=== PATIENT | female | born 1980 | race Caucasian/White ===

== ENCOUNTER 2016-06-02 16:38 | Emergency (ER) | payer MEDICAID ==
[~2016-06-02] VITALS: Ht 162.6 cm; Wt 59.0 kg
[~2016-06-02 16:38] MED LIST: ALPR.25 PO
[2016-06-02 16:46] VITALS: BP 118/79; PULSE 94; RESP 16; TEMP 98.8; O2SAT 99
[2016-06-02] MEDS ORDERED: LORA-373 PO (16:54)
--- NOTE | 2016-06-02 17:03 | PD ---
HPI Chief Complaint: Back/ Neck Pain or Injury Time Seen by Provider: 17:03 Travel History International Travel<30 days: No Contact w/Intl Traveler<30days: No Traveled to known affect area: No History of Present Illness HPI 35-year-old female presents to the ED for evaluation of 2 week history of low back pain. Described as constant, worsened by sitting or certain motions. Patient can identify no acute trauma or overuse. She does state that she is very active. She denies numbness, tingling, weakness, limitations to range of motion or loss of strength of the lower extremities. She denies saddle anesthesia or incontinence. She's been treating with ibuprofen and bed rest with no improvement of symptoms. She states that she has a history of similar back problems. She states that she fell onto her bottom from a sitting position approximately 6 weeks ago. But she states that her presenting symptoms did not occur until 2 weeks ago. PFSH Past Medical History Blood Disorders: No Anxiety: Yes Depression: Yes Heart Rhythm Problems: No Cancer: Yes (CERVICAL; LEEP PROCEDURE DONE) Cardiac Catheterization: No Cardiovascular Problems: No High Cholesterol: No Chest Pain: Yes Congestive Heart Failure: No Diabetes: No Endocrine: No Genitourinary: No Headaches: Yes Hypertension: No Immune Disorder: No Implanted Vascular Access Dvce: Yes Musculoskeletal: No Neurologic: Yes Psychiatric: Yes Reproductive: No Respiratory: No Myocardial Infarction: No PNEUMOCCOCAL Vaccine (Year): 2 ?: Not LMP: 05/09/16 : 3 Para: 2 Past Surgical History Body Medical Devices: BILAT BREAST IMPLANTS Coronary Artery Bypass Graft: No Gynecologic Surgery: Yes (CRYOSURGERY) Other Surgery: Yes (BREAST IMPLANTS) Family History Family Myocardial Infarction: Yes (FATHER) Social History Alcohol Use: Yes (OCC) Tobacco Use: Yes (5-6 CIGS PER DAY) Substance Use: No Allergies-Medications (Allergen,Severity, Reaction): Coded Allergies: No Known Allergies (Verified , 06/02/16) Reported Meds & Prescriptions Reported Meds & Active Scripts Active Ibuprofen 800 Mg Tab 800 Mg PO Q8H Flexeril (Cyclobenzaprine HCl) 10 Mg Tab 10 Mg PO TID Reported Lorazepam 0.5 Mg Tab Unknown Dose PO DAILY PRN Review of Systems Except as stated in HPI: all other systems reviewed are Neg Physical Exam Narrative GENERAL: Well-nourished, well-developed female in no acute distress. SKIN: Focused skin assessment warm/dry. HEAD: Normocephalic. EYES: No scleral icterus. No injection or drainage. NECK: Supple, trachea midline. No JVD or lymphadenopathy. CARDIOVASCULAR: Regular rate and rhythm without murmurs, gallops, or rubs. RESPIRATORY: Breath sounds equal bilaterally. No accessory muscle use. GASTROINTESTINAL: Abdomen soft, non-tender, nondistended. MUSCULOSKELETAL: No cyanosis, or edema. 5/5 strength of dorsiflexion, plantar flexion, hip and knee flexion bilaterally. Positive straight leg raise on the right. Neurovascularly intact. BACK: Nontender without obvious deformity. No CVA tenderness. Data Data Last Documented VS Vital Signs Date Time Temp Pulse Resp B/P Pulse Ox O2 Delivery O2 Flow Rate FiO2 06/02/16 16:46 98.8 94 16 118/79 99 Orders Ketorolac Inj (Toradol Inj) (06/02/16 18:00) Orphenadrine Inj (Norflex Inj) (06/02/16 18:00) Acetamin-Hydrocod 325-5 Mg (Marble 5-325 (06/02/16 18:00) MDM Medical Decision Making Medical Screen Exam Complete: Yes Emergency Medical Condition: Yes Differential Diagnosis Acute on chronic back pain versus SI joint instability versus sciatica versus other Narrative Course 35-year-old female presents to the ED for evaluation of 2 week history of low back pain. Described as constant, worsened by sitting or certain motions. Patient can identify no acute trauma or overuse. She does state that she is very active. She denies numbness, tingling, weakness, limitations to range of motion or loss of strength of the lower extremities. She denies saddle anesthesia or incontinence. She's been treating with ibuprofen and bed rest with no improvement of symptoms. She states that she has a history of similar back problems. Vitals reviewed. Physical exam reveals a nontoxic-appearing female in no acute distress. 5/5 strength of dorsiflexion, plantar flexion, hip and knee flexion bilaterally. Straight leg raise is positive on the right. Neurovascularly intact. Back is nontender, no obvious deformity, no CVA tenderness. This is acute exacerbation of chronic low back pain. Patient was administered by mouth Lortab, IM Toradol, IM Norflex. She is prescribed a short course of anti-inflammatories and muscle relaxants. She is instructed to take the medications as prescribed, return to normal, gentle activity as tolerated, follow up with the primary care provider. She indicated understanding of the instructions. She is agreeable to the care plan. She is stable and discharged home. Diagnosis Primary Impression: Low back pain Qualified Code: M54.5 - Acute bilateral low back pain without sciatica Referrals: Primary Care Physician Patient Instructions: General Instructions, Low Back Strain (ED), Lower Back Exercises (ED) Additional Instructions: Rest, hydrate. Return to normal, gentle activities as tolerated. A mixture of rest and activity as best for back pain. Take 800 mg ibuprofen every 8 hours as prescribed. Begin taking ibuprofen tomorrow morning. Take Flexeril up to 3 times a day as needed for muscle spasm. Do not drive while taking Flexeril. Warm compresses and/or gentle massage applied to the area and may also help to improve your symptoms. Follow-up with your primary care provider. Return to the ED for any urgent or emergent medical condition. Med/Other Pt SpecificInfo: Prescription(s) given Scripts Ibuprofen 800 Mg Sev809 Mg PO Q8H #15 TAB Ref 0 Prov:Chetna Ca MD 06/02/16 Cyclobenzaprine (Flexeril)10 Mg Tab10 Mg PO TID #12 TAB Ref 0 Prov:Chetna Ca MD 06/02/16 Disposition: 01 DISCHARGE HOME Condition: Stable Genesis Rayo Jun 02, 2016 17:03
[2016-06-02] MEDS ORDERED: CYCL1TAB29 PO (17:59)
[2016-06-02] MEDS ORDERED: IBUP800T23 PO (17:59)
[2016-06-02] MEDS ORDERED: KETOROLAC TROMETHAMINE 60 MG/2 ML (IM) VIAL IM ONE (18:00)
[2016-06-02] MEDS ORDERED: ACETAMINOPHEN/HYDROcodone 325 MG/5 MG TAB PO ONE (18:00)
[2016-06-02] MEDS ORDERED: ORPHENADRINE INJ 60 MG/2 ML AMP IM ONE (18:00)
== END 2016-06-02 18:36 | disposition home or self-care (01) ==
LOC: PHEFT 16:38
DX: M54.5 Low back pain (principal); Z72.0 Tobacco use
CPT/HCPCS: 96372; 99283; J1885; J2360